=== PATIENT | male | born 1955 | race Caucasian/White ===

== ENCOUNTER 2020-11-27 12:02 | Outpatient (CLI) | payer OTHER, SELFPAY ==
--- NOTE | 2020-11-27 12:13 | USCV_ITS ---
Ortiz Banks Age: 65 Gender: M : 1955 Exam Date: 11/27/2020 12:28 Ordering Phys: Madison Astorga MD Technologist: Nida Benitez Exam Location: [facility] – [place] Indication: CVA BP: 140 / 80 HR: 64 Rhythm: Sinus Technical Quality: Adequate MEASUREMENTS (Male / Female) Normal Values 2D ECHO LV Diastolic Diameter PLAX 3.4 cm 4.2 - 5.9 / 3.9 - 5.3 cm LV Systolic Diameter PLAX 2.8 cm LV Chamber Size 3.4 cm IVS Diastolic Thickness 1.4 cm 0.6 - 1.0 / 0.6 - 0.9 cm IVS Systolic Thickness 1.4 cm LVPW Diastolic Thickness 1.6 cm 0.6 - 1.0 / 0.6 - 0.9 cm LVPW Systolic Thickness 1.4 cm RV Chamber Size 4.4 cm LVOT Diameter 2.1 cm LV Ejection Fraction 2D Teich 35.8 % LV Ejection Fraction MOD 2C 54.0 % LV Ejection Fraction 2C AL 56.7 % LA Diameter 2.9 cm LA Width 3.4 cm LA Height 3.8 cm RA Width 3.8 cm RA Height 3.5 cm Aorta at Sinotubular Diameter 3.9 cm M-MODE LV Diastolic Diameter MM 4.9 cm 4.2 - 5.9 / 3.9 - 5.3 cm LV Systolic Diameter MM 3.4 cm LV Ejection Fraction MM Teich 58.7 % IVS Diastolic Thickness MM 1.2 cm 0.6 - 1.0 / 0.6 - 0.9 cm IVS Systolic Thickness MM 1.5 cm LVPW Diastolic Thickness MM 1.5 cm 0.6 - 1.0 / 0.6 - 0.9 cm LVPW Systolic Thickness MM 1.3 cm Aortic Annulus Diameter 4.2 cm LA Ao Ratio MM 0.7 MV E Point Septal Separation 0.2 cm DOPPLER AV Peak Velocity 108.0 cm/s LVOT Peak Velocity 94.0 cm/s AV Area Cont Eq vti 2.6 cm squared AV Area Cont Eq pk 3.0 cm squared MV Area PHT 4.6 cm squared Mitral E to A Ratio 1.3 MV E' Velocity 40.0 cm/s Mitral E to MV E' Ratio 9.7 Mitral E to LV E' Lateral Ratio 8.6 Mitral E to LV E' Septal Ratio 11.4 TR Peak Velocity 101.7 cm/s TR Peak Gradient 4.1 mmHg TR Mean Velocity 64.9 cm/s TR Mean Gradient 2.0 mmHg TR Velocity Time Integral 25.7 cm TV Peak E Velocity 55.0 cm/s Right Atrial Pressure 3.0 mmHg Pulmonary Artery Systolic Pressu 7.1 mmHg PV Peak Velocity 56.0 cm/s RV Acceleration Time 0.1 s RV Ejection Time 0.3 s RV AcT/ET 0.5 FINDINGS Left Ventricle Normal left ventricular size, systolic function and wall thickness, with no regional wall motion abnormalities. Left ventricular ejection fraction is estimated at 60 %. Normal diastolic function. Right Ventricle Normal right ventricular size and systolic function. Right ventricular systolic pressure 7.1 mmHg. Right Atrium Normal right atrial size. Right atrial pressure estimated at 3 mm Hg. Left Atrium Normal left atrial size. Mitral Valve Structurally normal mitral valve. No mitral valve stenosis. Trace mitral valve regurgitation. Aortic Valve Structurally normal trileaflet aortic valve. No aortic valve stenosis. No aortic valve regurgitation. Tricuspid Valve Structurally normal tricuspid valve. Trace tricuspid valve regurgitation. Pulmonic Valve Pulmonic valve not well visualized. Trace pulmonary valve regurgitation. Pericardium No pericardial effusion. Aorta Normal size aortic root. Normal sized inferior vena cava. CONCLUSIONS 1. Normal left ventricular size, systolic function and wall thickness, with no regional wall motion abnormalities. Left ventricular ejection fraction is estimated at 60 %. Normal diastolic function. 2. No significant valvular abnormality. 3. Normal pulmonary artery pressure. 4. No pericardial effusion. 5. No prior similar studies to compare. Andressa Hanks MD (Electronically Signed) Final Date: 29 November 2020 08:25 S
== END 2020-11-27 12:03 | disposition home or self-care (01) ==
LOC: RAD 12:07
PROVIDERS: PCP Family Medicine; Visit Provider Family Medicine
DX: I63.9 Cerebral infarction, unspecified (principal)
CPT/HCPCS: 93306

== ENCOUNTER 2023-10-01 09:37 | Outpatient (CLI) | payer OTHER, SELFPAY ==
--- NOTE | 2023-10-01 09:42 | USCV_ITS ---
Ortiz Banks Age: 67 Gender: M : 1955 Exam Date: 10/01/2023 10:08 Ordering Phys: Madison Astorga MD Technologist: CT Exam Location: [facility] – [place] Indication: thor aaa,sob BP: 136 / 79 HR: Rhythm: PACs Technical Quality: Adequate MEASUREMENTS (Male / Female) Normal Values 2D ECHO LV Chamber Size 5.4 cm RV Chamber Size 3.8 cm LVOT Diameter 2.6 cm LV Ejection Fraction MOD 2C 57.7 % LV Ejection Fraction 2C AL 58.0 % LA Diameter 3.6 cm LA Width 3.7 cm LA Height 5.4 cm RA Width 3.9 cm RA Height 3.8 cm Aorta at Sinotubular Diameter 3.3 cm IVC Diameter 1.5 cm M-MODE Aortic Annulus Diameter 4.3 cm LA Ao Ratio MM 1.0 MV E Point Septal Separation 1.2 cm DOPPLER AV Peak Velocity 123.0 cm/s LVOT Peak Velocity 77.0 cm/s AV Area Cont Eq vti 3.7 cm squared AV Area Cont Eq pk 3.3 cm squared MV E' Velocity 15.0 cm/s TR Peak Velocity 121.0 cm/s TR Peak Gradient 5.9 mmHg TV Peak E Velocity 61.0 cm/s Right Atrial Pressure 3.0 mmHg Pulmonary Artery Systolic Pressu 8.9 mmHg FINDINGS Left Ventricle There is no left ventricular hypertrophy. LV cavity size is normal. Mildly reduced LV systolic function with hypokinesis of inferior inferoseptal and mid anteroseptal segments. Overall estimated LVEF is 45 - 50% Right Ventricle Normal right ventricular size and systolic function. Right Atrium Normal right atrial size. Left Atrium Mildly increased left atrial size. Mitral Valve Mildly thickened mitral valve. Trace mitral valve regurgitation. Aortic Valve Thickened aortic valve. No aortic valve stenosis. No aortic valve regurgitation. Tricuspid Valve Structurally normal tricuspid valve. Trace tricuspid valve regurgitation. Pulmonic Valve Pulmonic valve not well visualized. Mild pulmonary valve regurgitation. Pericardium No pericardial effusion. Aorta Normal size aortic root and proximal ascending aorta. IVC Normal IVC dimension with >50% respiratory change of the inferior vena cava. CONCLUSIONS 1. Mildly reduced LV systolic function. Estimated LVEF is 45 to 50% with basal to mid inferoseptal and mid anteroseptal hypokinesis. 2. No significant valvular abnormality noted. 3. Normal right heart and pulmonary pressures. Ignacio York MD (Electronically Signed) Final Date: 01 October 2023 15:17 S
== END 2023-10-01 09:38 | disposition home or self-care (01) ==
LOC: RAD 09:38
PROVIDERS: PCP Family Medicine; Visit Provider Family Medicine
DX: I71.20 Thoracic aortic aneurysm, without rupture, unspecified (principal); R06.02 Shortness of breath
CPT/HCPCS: 93306

== ENCOUNTER 2023-10-09 09:23 | Outpatient (CLI) | payer OTHER, SELFPAY ==
--- NOTE | 2023-10-09 09:31 | CT_ITS ---
WS: [id number] CTA THORACIC AORTA WITH AND WITHOUT CONTRAST HISTORY: ASCENDING THORACIC ANEURYSM TECHNIQUE: CT imaging of the thorax is performed with and without contrast. After noncontrast imaging is performed, CT angiogram is performed during injection of Omnipaque 350; 100 mL IV.. Sagittal and coronal reconstructions, sagittal and coronal MIP imaging is submitted. All CT scans at [facility] use at least one of these dose optimization techniques: automated exposure control; mA and/or k V adjustment per patient size (includes targeted exams where dose is matched to clinical indication); or iterative reconstruction. DLP: 667.62 mGy.cm COMPARISON: None available. Mild ectasia and atherosclerotic plaque thoracic aorta. Maximum transverse diameter of the ascending aorta 3.9 cm. Descending aorta is minimally ectatic but not aneurysmal. There is no dissection. Great vessels are well identified with mild atherosclerotic plaque at their origins. Bovine arch. Vertebra l arteries are both identified proximally and patent. Lungs are slightly hyperexpanded with mild interstitial thickening. Probably related to history of sm oking. No mass or nodules. Heart size is normal. No pericardial or pleural effusions. Small hiatal he rnia. Stomach is markedly distended with fluid. No adrenal mass. No osseous destruction. IMPRESSION: 1. Ectatic but nonaneurysmal thoracic aorta with mild atherosclerotic plaque. Maximum transverse diam eter ascending aorta is 3.9 cm. 2. No aortic dissection. 3. Mild chronic emphysema.
== END 2023-10-09 09:24 | disposition home or self-care (01) ==
PROVIDERS: PCP Family Medicine; Visit Provider Family Medicine
DX: I71.21 Aneurysm of the ascending aorta, without rupture (principal); I70.0 Atherosclerosis of aorta; J43.9 Emphysema, unspecified
CPT/HCPCS: 71275; Q9967